=== PATIENT | male | born 1975 | race African-American/Black ===

== ENCOUNTER 2019-01-09 10:07 | Inpatient (IN) ==
[2019-01-09] MEDS ORDERED: ALBUTEROL/IPRATROPIUM 3 ML NEB RESP TX PRN (14:47)
[2019-01-09] MEDS ORDERED: ACETAMINOPHEN 325 MG TABLET PO PRN (14:47)
[2019-01-09] MEDS ORDERED: ONDANSETRON 4 MG/2 ML VIAL IV PRN (14:47)
[2019-01-09] MEDS: LACTATED RINGERS 1,000 ML IV SCH ×2 (20:46→23:19)
[2019-01-09 21:08] LABS: Basophils % 0.2 % (0.0-0.8); Eosinophils % 0.2 % (0.00-10.9); Hematocrit 44.5 VOL% (42.0-52.0); Hemoglobin 14.1 GM/DL (14.0-18.0); Immature Granulocytes % 0.3 %; Immature Granulocytes Absolute 0.02 #; Lymphocytes # 0.3 10*3/uL (1.4-4.0); Lymphocytes % 5.5 % (21.2-54.2); Mean Corpuscular HGB Conc 31.7 GM/DL (32-36); Mean Corpuscular Volume 83.6 FL (87-102); Mean Platelet Volume 9.6 FL (9.6-12.0); Monocytes % 20.6 % (1.7-12.7); Neutrophils % 73.2 % (38.7-73.9); Platelet Count 231 T/CUMM (130-400); Red Blood Count 5.32 MC/CUMM (3.8-5.5); Red Cell Distribution Width 16.4 % (9.3-17.3); White Blood Count 6.2 T/CUMM (4-12)
[2019-01-09 21:23] LABS: Albumin 3.1 G/DL (3.4-5.0); Bilirubin,Total 0.8 MG/DL (0.2-1.0); Calcium 9.1 MG/DL (8.5-10.1); Osmolality,Calculated 283.3 MOS/KG (273-304); Total Protein 7.6 G/DL (6.4-8.3)
[2019-01-09 21:38] LABS: Band Neutrophils 1 % (0-10); Lymphocytes 13 % (20-55); Platelet Estimate Normal; Segmented Neutrophils 73 % (50-85); Total Cells Counted 100
[2019-01-10] MEDS: HYDROmorphone 2 MG/1 ML VIAL IV PRN ×5 (00:23→22:04)
[2019-01-10] MEDS: LACTATED RINGERS 1,000 ML IV SCH ×4 (05:01→15:00)
[2019-01-10] MEDS: PANTOPRAZOLE 40 MG VIAL IV SCH (09:14)
[2019-01-10 20:29] LABS: Apearance,Urine CLEAR (Clear); Bacteria,Urine Occasional /HPF (Few); Bilirubin,Urine Negative (Negative); Blood, Urine Negative (Negative); Glucose,Urine (UA) Negative (Negative); Ketones,Urine 20 mg/dL (Negative); Mucus,Urine Occasional /LPF (Occasional); Nitrite,Urine Negative (Negative); Protein,Urine Negative; RBC,Urine <1 /HPF (0-4); Squamous Epithelial Cell,Urine Occasional /HPF (0-10); Urine Color Yellow (Yellow); Urine Specific Gravity 1.019 (1.001-1.035); Urine Urobilinogen < 2.0 EU/DL (0.2-1.0); WBC,Urine 1 /HPF (0-6)
[2019-01-11] MEDS: LACTATED RINGERS 1,000 ML IV SCH ×2 (00:05→07:26)
[2019-01-11 04:09] LABS: Basophils % 0.2 % (0.0-0.8); Eosinophils # 0.1 10*3/uL (0.0-0.87); Hematocrit 36.3 VOL% (42.0-52.0); Hemoglobin 11.5 GM/DL (14.0-18.0); Immature Granulocytes % 0.6 %; Immature Granulocytes Absolute 0.03 #; Lymphocytes # 0.7 10*3/uL (1.4-4.0); Lymphocytes % 14.3 % (21.2-54.2); Mean Corpuscular HGB Conc 31.7 GM/DL (32-36); Monocytes % 24.7 % (1.7-12.7); Neutrophils % 59.2 % (38.7-73.9); Platelet Count 201 T/CUMM (130-400); Red Blood Count 4.32 MC/CUMM (3.8-5.5); Red Cell Distribution Width 15.8 % (9.3-17.3)
[2019-01-11 04:35] LABS: Calcium 8.6 MG/DL (8.5-10.1); Osmolality,Calculated 277.4 MOS/KG (273-304)
[2019-01-11 04:58] LABS: Band Neutrophils 1 % (0-10); Eosinophils 1 % (0-10); Lymphocytes 19 % (20-55); Segmented Neutrophils 62 % (50-85); Total Cells Counted 100
[2019-01-11 04:59] LABS: Anisocytosis 1+; Platelet Estimate Adequate
[2019-01-11] MEDS ORDERED: IBUPROFEN 600 MG TABLET PO ONE (07:29)
[2019-01-11 07:37] VITALS: BP 124/73
[2019-01-11] MEDS: PANTOPRAZOLE 40 MG VIAL IV SCH (08:58)
== END 2019-01-11 11:15 | disposition home or self-care (01) | DRG 394 ==
LOC: N.3E 20:00
PROVIDERS: ADMIT Surgery; ATTEND Surgery